=== PATIENT | female | born 1990 | race Native Hawaiian/Other Pacific Islander ===

== ENCOUNTER 2017-03-25 15:16 | Emergency (ER) | payer BC ==
[2017-03-25 15:20] VITALS: TEMP 98.7; O2SAT 98
[2017-03-25 15:52] LABS: VENOUS BLOOD GAS PCO2 40 mmHg (40-60)
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
[2017-03-25 16:00] LABS: VENOUS BLOOD GAS BASE EXCESS -0.5 mmol/L (0.0-2.0); VENOUS BLOOD GAS PCO2 39 mmHg (40-60)
[2017-03-25 17:10] LABS: ABG ALLEN TEST YES; ARTERIAL BLOOD GAS HCO3 25.5 mmol/L (21-28); ARTERIAL BLOOD GAS PH 7.41 (7.35-7.45); ARTERIAL BLOOD GAS PO2 98 mm/Hg (80-100)
[2017-03-25 17:45] LABS: BLOOD GAS HEMOGLOBIN 14.8 g/dL (11.7-17.4); CARBOXYHEMOGLOBIN 0.7 % (0.5-1.5); HHB 74.8 % (0.0-5.0); METHEMOGLOBIN 1.4 % (0.0-3.0); VENOUS BLOOD GAS BASE EXCESS 1.8 mmol/L (0.0-2.0); VENOUS BLOOD GAS PCO2 59 mmHg (40-60); VENOUS BLOOD PH 7.31 (7.32-7.43)
[2017-03-25 18:07] VITALS: RESP 16
[2017-03-25 18:08] VITALS: BP 121/68; PULSE 91
== END 2017-03-25 18:19 | disposition home or self-care (01) ==
LOC: H.ER 15:16
DX: J70.5 Respiratory conditions due to smoke inhalation (principal)